=== PATIENT | female | born 1970 | race Caucasian/White ===

== ENCOUNTER 2019-01-07 16:40 | Outpatient (CLI) | payer OTHER ==
--- NOTE | 2019-01-07 19:32 | RAD ---
LEFT FOOT THREE VIEWS: 01/07/19 There is bunion formation on the medial aspect of the first metatarsal head as well as a mild hallux valgus deformity. There may be some fusion or at least bony overgrowth of the sesamoids of the first MTP joint. No acute fracture was seen. A moderate sized calcaneal spur is present. A bony ossicle is seen on the dorsum of the talonavicular joint as part of the navicular that could be old trauma or d evelopmental. IMPRESSION: Chronic changes but no acute findings. POS: HOME
== END 2019-01-07 16:41 | disposition home or self-care (01) ==
LOC: BURRAD 16:40
PROVIDERS: ATTEND Family Medicine
DX: M79.672 Pain in left foot (principal)